=== PATIENT | male | born 1960 | race Caucasian/White ===

== ENCOUNTER → 2016-12-19 | Outpatient (CLI) | payer BC, OTHER ==
[~2016-12-19] MED LIST: ASPI325T4 PO; ATOR40TA PO; FAMO-79 PO; FLUT9.9S NS; GADOBUTROL 10 MMOL/10 ML PFS ONE; SUMA100T3 PO
== END | disposition home or self-care (01) ==
LOC: CFH 07:37
PROVIDERS: ATTEND Registered Nurse
DX: I67.82 Cerebral ischemia (principal); G43.009 Migraine without aura, not intractable, without status migrainosus
CPT/HCPCS: 70553; A9585

== ENCOUNTER 2017-01-10 11:40 | Day surgery (SDC) | payer BC, OTHER ==
[~2017-01-10 11:40] MED LIST changes: -GADOBUTROL 10 MMOL/10 ML PFS ONE
[2017-01-10] MEDS ORDERED: LIDOCAINE 2%, 20ML ONE (12:23)
== END 2017-01-10 13:20 | disposition home or self-care (01) ==
LOC: CACL 11:40
PROVIDERS: ATTEND Internal Medicine Cardiovascular Disease
DX: I63.9 Cerebral infarction, unspecified (principal); E78.5 Hyperlipidemia, unspecified; I10 Essential (primary) hypertension; Z79.82 Long term (current) use of aspirin
CPT/HCPCS: 33282; C1764; J3490

== ENCOUNTER → 2017-04-10 | Outpatient (CLI) | payer BC ==
[~2017-04-10] MED LIST changes: +ASPI325T17 PO; -ASPI325T4 PO
== END | disposition home or self-care (01) ==
LOC: CVU 08:35
PROVIDERS: ATTEND Internal Medicine Cardiovascular Disease
DX: I63.9 Cerebral infarction, unspecified (principal)
CPT/HCPCS: 93880

== ENCOUNTER → 2017-11-07 | Outpatient (CLI) | payer BC | END | disposition home or self-care (01) | LOC: CFH 07:04 | PROVIDERS: ATTEND Nurse Practitioner Primary Care | DX: M23.242 Derangement of anterior horn of lateral meniscus due to old tear or injury, left knee (principal); M22.42 Chondromalacia patellae, left knee; M25.462 Effusion, left knee; W19.XXXD Unspecified fall, subsequent encounter ==

== ENCOUNTER 2019-05-04 12:12 | Outpatient (CLI) | payer BC ==
[2019-05-04] MEDS ORDERED: GADOTERATE 10 MMOL/20 ML SYR ONE (12:53)
== END 2019-05-04 23:59 | disposition home or self-care (01) ==
LOC: CFH 12:12
PROVIDERS: ATTEND Registered Nurse
DX: R90.82 White matter disease, unspecified (principal); J32.0 Chronic maxillary sinusitis; J32.1 Chronic frontal sinusitis; I63.9 Cerebral infarction, unspecified
CPT/HCPCS: 70553; A9575

== ENCOUNTER → 2020-02-25 | Outpatient (CLI) | payer BC ==
[~2020-02-25] MED LIST changes: +GADOTERATE 10 MMOL/20 ML SYR ONE
== END | disposition home or self-care (01) ==
LOC: RAD 14:54 → EDSTATUS 15:00
PROVIDERS: ATTEND Registered Nurse
DX: G43.109 Migraine with aura, not intractable, without status migrainosus (principal); R47.89 Other speech disturbances
CPT/HCPCS: 70553; A9575

== ENCOUNTER 2020-12-16 08:32 | Day surgery (SDC) | payer BC ==
[~2020-12-16] VITALS: Ht 188 cm; Wt 83.6 kg
[~2020-12-16 08:32] MED LIST changes: -GADOTERATE 10 MMOL/20 ML SYR ONE
[2020-12-16] MEDS ORDERED: LIDOCAINE 2%, 20ML ONE (10:16)
== END 2020-12-16 11:27 | disposition home or self-care (01) ==
LOC: CACL 08:32
PROVIDERS: ATTEND Internal Medicine Cardiovascular Disease
DX: Z45.09 Encounter for adjustment and management of other cardiac device (principal); I10 Essential (primary) hypertension; E78.5 Hyperlipidemia, unspecified; I87.2 Venous insufficiency (chronic) (peripheral); Z79.82 Long term (current) use of aspirin; Z79.899 Other long term (current) drug therapy; Z86.73 Personal history of transient ischemic attack (TIA), and cerebral infarction without residual deficits; Z88.8 Allergy status to other drugs, medicaments and biological substances; Z91.040 Latex allergy status
CPT/HCPCS: 33286